=== PATIENT | female | born 1950 | race Caucasian/White ===

== ENCOUNTER 2017-04-30 16:55 | Outpatient (CLI) | payer MEDICARE, BC | END 2017-04-30 17:33 | LOC: D.MAMMO 16:55 | DX: Z12.31 Encounter for screening mammogram for malignant neoplasm of breast (principal) ==

== ENCOUNTER → 2017-06-03 15:01 | Outpatient (CLI) | payer MEDICARE, BC | END | disposition home or self-care (01) | LOC: D.MAMMO 09:00 | DX: R92.8 Other abnormal and inconclusive findings on diagnostic imaging of breast (principal) ==

== ENCOUNTER → 2017-09-15 19:44 | Outpatient (CLI) | payer MEDICARE, BC | END | disposition home or self-care (01) | LOC: D.SLEEP 19:44 | DX: G47.33 Obstructive sleep apnea (adult) (pediatric) (principal) ==

== ENCOUNTER → 2017-10-14 19:32 | Outpatient (CLI) | payer MEDICARE, BC | END | disposition home or self-care (01) | LOC: D.SLEEP 19:32 | DX: G47.9 Sleep disorder, unspecified (principal) ==

== ENCOUNTER → 2017-10-15 19:44 | Outpatient (CLI) | payer MEDICARE, BC | END | disposition home or self-care (01) | LOC: D.SLEEP 10-14 20:00 | DX: G47.33 Obstructive sleep apnea (adult) (pediatric) (principal) ==

== ENCOUNTER → 2018-03-30 18:41 | Outpatient (CLI) | payer MEDICARE | END | disposition home or self-care (01) | LOC: D.MAMMO 09:30 | DX: R92.8 Other abnormal and inconclusive findings on diagnostic imaging of breast (principal) ==

== ENCOUNTER 2018-05-13 08:00 | Outpatient (CLI) | payer BC, MEDICARE | END 2018-05-13 10:00 | LOC: D.MAMMO 08:00 | DX: R92.8 Other abnormal and inconclusive findings on diagnostic imaging of breast (principal) ==

== ENCOUNTER → 2018-10-07 16:57 | Outpatient (CLI) | payer BC, MEDICARE | END | disposition home or self-care (01) | LOC: D.MAMMO 15:00 | DX: R92.8 Other abnormal and inconclusive findings on diagnostic imaging of breast (principal) ==

== ENCOUNTER 2019-08-29 08:00 | Outpatient (CLI) | payer BC, MEDICARE | END 2019-08-29 23:59 | disposition home or self-care (01) | LOC: D.MAMMO 08:00 | PROVIDERS: ATTEND Emergency Medicine | DX: Z12.31 Encounter for screening mammogram for malignant neoplasm of breast (principal) ==

== ENCOUNTER → 2020-02-09 09:30 | Outpatient (CLI) | payer BC, MEDICARE ==
--- NOTE | ~2020-02-09 | ST ---
PATIENT:CORNELIA PRAJAPATI MEDICAL RECORD: [id number] SEX: F LOCATION:[facility] ORDER #: ADMISSION DATE: 02/09/20 AGE OF PATIENT: 69 REFERRING PHYSICIAN: INTERPRETING PHYSICIAN: JULIA KUHN MD DATE OF SERVICE: 02/09/2020 PROCEDURE: Nuclear stress test. INDICATION: Angina, hypertension, hyperlipidemia, and diabetes. She was exercised on standard Lexiscan protocol with 32 mCi of sestamibi injected at peak stress, 10 mCi was used previously for rest images. FINDINGS: Gated SPECT reveals preserved ejection fraction at 71% with good wall motion and thickening and brightening throughout all segments. SPECT imaging Cardiolite was used as myocardial fusion agent. There is homogeneous uptake throughout all segments at rest and stress with no evidence of inducible ischemia or previous infarction. OVERALL IMPRESSION: 1. This is a normal nuclear stress test with no evidence of inducible ischemia or previous infarction. 2. Gated SPECT reveals a preserved ejection fraction at 71%. In this patient with ongoing symptomatology, the current scan does not suggest the presence of hemodynamically significant coronary artery disease. Evaluate noncardiac etiology of chest pain. TRANSINT:[id number] Voice Confirmation ID: [id number] DOCUMENT ID: [id number] JULIA KUHN MD CC: AUTUMN VIVAS [id number] DICTATION DATE: 02/10/20 1026 [employer] OPERATOR: 02/10/20 2334 [facility] CLI 02/09/20 [address] [place] [address]
== END | disposition home or self-care (01) ==
LOC: D.HCCARDIO 09:30
PROVIDERS: ATTEND Internal Medicine Interventional Cardiology
DX: I20.9 Angina pectoris, unspecified (principal)

== ENCOUNTER 2021-03-11 15:22 | Emergency (ER) | payer BC, MEDICARE ==
[~2021-03-11] VITALS: Ht 160 cm; Wt 65.9 kg
[2021-03-11 15:39] VITALS: BP 159/66; Ht 160 cm; Wt 65.9 kg
[2021-03-11 17:02] LABS: BASOPHILS 0.7 % (0-2); EOSINOPHILS 6.5 % (0-7); HEMATOCRIT 41.6 % (36.0-48.0); HEMOGLOBIN 14.4 g/dL (12-16); IMMATURE GRANULOCYTES 0.3 % (0-5); LYMPHOCYTE ABS# 1.91 10x3/uL (1.18-3.74); MCH 31.2 pg (26.0-34.0); MCHC 34.6 g/dL (31.0-37.0); MCV 90.2 fL (80.0-100.0); MEAN PLATELET VOLUME 9.8 fL (7.4-10.4); MONOCYTES 10.6 % (2-11); NEUTROPHIL ABS# 4.36 10x3/uL (1.56-6.13); NEUTROPHILS 56.9 % (40-80); RBC 4.61 10x6/uL (4.00-5.40); RDW 12.4 % (11.5-14.5); WBC 7.7 10x3/uL (4.8-10.8)
[2021-03-11 17:10] LABS: ANION GAP 9.9 mmol/L (8-16); CALCIUM 9.8 mg/dL (8.5-10.1); CARBON DIOXIDE 31.8 mmol/L (21.0-32.0); CREATININE - SERUM 0.8 mg/dL (0.6-1.3); POTASSIUM - SERUM 4.7 mmol/L (3.5-5.1)
[2021-03-11 17:14] LABS: PLATELET COUNT 229 10x3/uL (130-400)
[2021-03-11 17:17] LABS: ALBUMIN 3.5 g/dL (3.4-5.0); BILIRUBIN - TOTAL 0.38 mg/dL (0.2-1.3); PROTEIN - SERUM 7.1 g/dL (6.4-8.2)
== END 2021-03-11 18:15 | disposition home or self-care (01) ==
LOC: D.ER 15:22
PROVIDERS: Emergency Medicine
DX: A08.4 Viral intestinal infection, unspecified (principal); E11.9 Type 2 diabetes mellitus without complications; I10 Essential (primary) hypertension

== ENCOUNTER → 2021-04-30 12:32 | Day surgery (SDC) | payer BC, MEDICARE ==
[2021-03-11 15:39] VITALS: BMI 25.7
--- NOTE | ~2021-04-30 | HEMODYNAMI ---
PATIENT:CORNELIA PRAJAPATI MEDICAL RECORD: [id number] : 46 [id number] ADMISSION DATE: 04/30/21 Generatedon:113:15 Patient name: CORNELIA PRAJAPATI Patient #: [id number] SSN: : 1950 Date of study: 04/30/2021 Page: Of Hemodynamic Procedure Report Patient Data Patient Demographics Procedure consent was obtained First Name: CORNELIA Gender: Female Last Name: ALO : 1950 Middle Initial: M Age: 70 year(s) Patient #: [id number] Race: Unknown Additional ID: [id number] Contact details [address]: [address] [place] [address] State: [place] City: [place] Zip code: [address] Past Medical History Allergies: No known allergies Admission Admission Data Admission Date: 04/30/2021 Admission Time: 12:32 Procedure Procedure Types Cath Procedure Peripheral Cath Diagnostic Procedure Miscellaneous Aspiration/Injection (Joint) Procedure Description Procedure Date Procedure Date: 04/30/2021 Procedure Start Time: 13:06 Procedure Staff Name Function Justin Hopper MD Performing Physician Ryan Gama RT Scrub Clarice Henao RT Editor Managing [employer] Procedure Data Cath Procedure Fluoroscopy Diagnostic fluoroscopy Total fluoroscopy Time: 0.9 time: 0.9 min min Diagnostic fluoroscopy Total fluoroscopy dose: 11 dose: 11 mGy mGy Contrast Material Contrast Material Type Amount (ml) Isovue 200 5 Hemodynamics Rest Pre Cath Intra NCS Post Cath Procedure Log Time Note 12:56:12 SAFE-T PLUS MYELOGRAM TRAY opened to sterile field. 12:56:20 Time tracking: Regular hours (M-F 7:00 - 5:00) 12:56:38 Patient received from Other to IR Alert and oriented. Tansferred to table in Supine position. 12:56:42 Signed procedure consent form obtained from patient. 12:56:44 Pre-procedure instructions explained to patient. 12:56:45 Pre-op teaching completed and patient verbalized understanding. 12:56:54 Patient allergic to No known allergies 13:06:11 Physician arrived 13:06:12 --------ALL STOP TIME OUT------ 13:06:12 Final Timeout: patient, procedure, and site verified with staff and physician. All members of the team are in agreement. 13:06:31 Right Hip was prepped with betadine and draped in sterile fashion. 13:06:38 Procedure started. 13:06:38 Full Disclosure recording started 13:06:49 Local anesthetic to Right Hip with Lidocaine 1% by Justin Hopper MD.INITIAL ACCESS ONLY 13:14:07 Procedure ended.(Physican Out) 13:14:23 Fluoroscopy time 00.90 minutes. 13:14:26 Fluoroscopy dose: 11 mGy 13:14:26 Flurop Dose total: 11 13:14:33 Contrast amount:Isovue 200 5ml. 13:14:45 Procedure and supply charges have been captured, reviewed, submitted and are correct. Device Usage Item Name Manufacture Quantity Catalog Hospital Part Current Minimal Lot# / Number Charge Number Stock Stock Serial# Code SAFE-T Care[employer]usion 1 [id number] PLUS MYELOGRAM TRAY Signature Audit [place] Stage Time Signature Unsigned Intra-Procedure 04/30/2021 Clarice Henao 1:15:19 PM RT(R) [facility] [address] [place] [address]
== END | disposition home or self-care (01) ==
LOC: D.RAD 10:00
PROVIDERS: ATTEND Nurse Practitioner Family
DX: M16.11 Unilateral primary osteoarthritis, right hip (principal)